=== PATIENT | male | born 1950 | race Caucasian/White ===

== ENCOUNTER 2017-06-14 19:22 | Emergency (ER) | payer OTHER ==
[~2017-06-14] VITALS: Ht 188 cm; Wt 123.4 kg
[2017-06-14 19:26] VITALS: BP 151/73
== END 2017-06-14 20:05 | disposition home or self-care (01) ==
LOC: ED 19:59
DX: J37.0 Chronic laryngitis (principal)
CPT/HCPCS: 99283